=== PATIENT | male | born 1980 | race Caucasian/White ===

== ENCOUNTER 2017-06-28 23:39 | Emergency (ER) | payer SELFPAY ==
[2017-06-28 23:42] VITALS: BP 150/75; PULSE 88; RESP 20; TEMP 36.8; O2SAT 98; BMI 34.0
--- NOTE | 2017-06-28 23:50 | XR_ITS ---
XR chest 2V HISTORY: Chest pain, current smoker ITS.REASON: CHEST PAIN ORDERING PHYSICIAN: Mariano Vergara MD PATIENT AGE: 37 years COMPARISON: None available FINDINGS: The cardiomediastinal silhouette and pulmonary vascularity are within normal limits. The lungs are clear without infiltrates, suspicious nodules, or pleural effusions. No acute bony abnormalities. IMPRESSION: Negative chest, no acute finding
--- NOTE | 2017-06-28 23:52 | [facility].EDGENADL ---
ED Disposition Clinical Impression: Atypical chest pain Disposition: Home, Self-Care Condition on Discharge: Good Instructions: DI for Atypical Chest Pain Additional Instructions: Ibuprofen for pain Additional instructions for CHEST PAIN: See your physician as soon as possible for further evaluation. Return immediately if worsening chest pain, vomiting, shortness of breath, fever, coughing of blood. Referrals: Khurram Baig MD [Primary Care Provider] - 3 days - Critical Care Critical Care Time: No Attestation: On , the high probability of a clinically significant, sudden or life threatening deterioration of the following system(s) required my full and direct attention, intervention and personal management. The time I documented below is in addition to time spent performing reported procedures but includes the following listed in this critical care notation. Medical Decision Making Vital Signs: 06/28/17 23:42 Temperature 98.2 F Temperature Source Oral Pulse Rate [Right Brachial] 88 Respiratory Rate 20 Blood Pressure [Right Arm] 150/75 Blood Pressure Mean [Right Arm] 100 Blood Pressure Source [Right Arm] Automatic Cuff Blood Pressure Position [Right Arm] Sitting 02 Sat by Pulse Oximetry 98 Oxygen Delivery Method Room Air - Lab Data Lab Results 06/28/17 23:50: WBC 8.6, RBC 5.19, Hgb 15.8, Hct 48.0, MCV 92.5, MCH 30.4, MCHC 32.9, RDW 13.0, Plt Count 301, MPV 7.2 L, Neut % (Auto) 56.2, Lymph % (Auto) 35.4, [place] % (Auto) 6.2, Eos % (Auto) 1.9, Baso % (Auto) 0.3, Neut # (Auto) 4.8, Lymph # (Auto) 3.1, [place] # (Auto) 0.5, Eos # (Auto) 0.2, Baso # (Auto) 0.0 06/28/17 23:50: Sodium 139, Potassium 3.6, Chloride 102, Carbon Dioxide 30, Anion Gap 10.6, BUN 16, Creatinine 1.16, Estimated Creat Clear 130, Estimated GFR > 60, Est GFR ( Amer) > 60, Glucose 136 H, Total Creatine Kinase 108, CK-MB (CK-2) < 0.5, CK-MB (CK-2) Rel Index 0.5, Troponin I < 0.02 Result diagrams: 06/28/17 23:50 06/28/17 23:50 Orders (Tests/Meds): ED MEDICATIONS Generic Name Dose Route Start Last Admin Trade Name Freq PRN Reason Stop Dose Admin Sodium Chloride 10 ml 06/28/17 23:50 Saline Flush 10ml Syringe IV 07/28/17 23:49 NEEDED PRN Maintain IV Site Discontinued Medications Generic Name Dose Route Start Last Admin Trade Name Freq PRN Reason Stop Dose Admin Aspirin 324 mg 06/28/17 23:51 06/28/17 23:53 Aspirin 81mg Chewable Tablet PO 06/28/17 23:52 324 mg ONCE ONE Administration ORDERS Category Date Time Status Chest XR 2 view (NOT portable) [XR chest 2V] Stat Exams 06/28/17 23:50 Taken ECG Request by /Jorge Stat Y 06/28/17 23:49 Ordered - Radiology Data #1 Image(s): Chest Image Reviewed: Yes I reviewed the patient's radiology results Preliminary Findings: Normal/NAD - ECG Data Tracing #1 EKG interpreted by Mariano Vergara MD: Rhythm: sinus Rate: 81 [place]: normal Ectopy: none Conduction: normal ST Segment Changes: none T Wave Changes: none Q Waves: none No evidence of acute ischemia or injury Normal EKG - [place] Inquiry Pt receiving controlled substance: No Medical Decision Making Narrative: Still asymptomatic except with movement of his left arm. I estimate there is LOW risk for PULMONARY EMBOLISM, ACUTE CORONARY SYNDROME, OR THORACIC AORTIC DISSECTION, thus I consider the discharge disposition reasonable. The patient's pain seems to be chest wall in origin. I am not suspicious of a cardiac source at this time. General Adult HPI - General Chief complaint: Chest Pain Stated complaint: CHEST PAIN Mode of Arrival: Ambulatory Limitations: No Limitations Description of Symptoms (Recalled from ER Triage Doc. by RN): C/O LEFT CHEST PAIN WITH RADIATION TO LEFT SHOULDER - History of Present Illness HPI narrative: The patient complains of left anterior chest pain that began while at the movies this evening, an hour and a half a
[2017-06-28 23:57] LABS: Basophils % 0.3 % (0.1-2.0); Eosinophils # 0.2 K/mm3 (0.0-0.4); Eosinophils % 1.9 % (0.1-12.0); Hemoglobin 15.8 g/dL (14.1-18.0); Lymphocytes # 3.1 K/mm3 (0.7-4.5); Lymphocytes % 35.4 K/mm3 (10-50); Mean Corpuscular HGB Conc 32.9 g/dL (31.8-35.4); Mean Corpuscular Hemoglobin 30.4 pg (27.0-31.2); Mean Corpuscular Volume 92.5 fl (80-94); Mean Platelet Volume 7.2 fl (7.4-10.4); Monocytes # 0.5 K/mm3 (0.1-1.0); Monocytes % 6.2 % (1.7-9.3); Neutrophils # 4.8 K/mm3 (1.8-7.8); Neutrophils % 56.2 % (37.0-80.0); Platelet Count 301 K/mm3 (142-424); Red Blood Count 5.19 M/mm3 (4.60-6.20); White Blood Count 8.6 K/mm3 (4.8-10.8)
[2017-06-29 00:23] LABS: Anion Gap 10.6 mEq/L (5-15); Blood Urea Nitrogen 16 mg/dL (7-18); Carbon Dioxide 30 mmol/L (21.0-32.0); Chloride 102 mmol/L (98-107); Creatine Kinase 108 U/L (39-308); Creatinine Clearance Estimated 130 mL/min (0-300); Creatinine,Serum 1.16 mg/dL (0.70-1.30); Estimated Glomerular Filt Rate > 60 ml/min (>60); GFR (African American) > 60 ML/MIN (>60); Glucose 136 mg/dL (74-106); Potassium 3.6 mmoL/L (3.5-5.1); Sodium 139 mmol/L (136-145); Troponin I < 0.02 ng/ml (0.00-0.06)
[2017-06-29 00:24] LABS: CKMB Relative Index 0.5 U/L (0-4.0); Creatine Kinase MB < 0.5 mg/ml (0.0-3.6)
== END 2017-06-29 01:32 | disposition home or self-care (01) ==
LOC: ER 06-29 01:30
PROVIDERS: Emergency Provider Emergency Medicine; Family Provider Family Medicine; PCP Family Medicine
DX: R07.89 Other chest pain (principal); E11.9 Type 2 diabetes mellitus without complications; F17.210 Nicotine dependence, cigarettes, uncomplicated
CPT/HCPCS: 71046; 80048; 82550; 82553; 84484; 85025; 93005; 93041; 99284

== ENCOUNTER → 2017-11-07 09:48 | Outpatient (CLI) | payer SELFPAY | PROVIDERS: PCP Nurse Practitioner Family; Visit Provider Nurse Practitioner Family | DX: Z02.4 Encounter for examination for driving license (principal) ==